=== PATIENT | male | born 1970 | race Caucasian/White ===

== ENCOUNTER 2022-03-01 15:49 | Emergency (ER) | payer OTHER, SELFPAY ==
--- NOTE | 2022-03-01 15:52 | ED.NECK ---
HPI - Neck Pain/Injury General Chief Complaint: Neck Pain/Injury Stated Complaint: NECK PAIN Time Seen by Provider: 03/01/22 15:52 Source: patient and RN notes reviewed History of Present Illness HPI Narrative: Patient is a 51-year-old male who presents the urgent care with complaints of right and posterior neck pain. Patient states that it started yesterday after he was pressure washing for many hours. Patient is right-hand dominant. States that he has a lot of arthritis in the neck and has had issues with pain in the past. Patient states that he has been taking ibuprofen and did see his sister before arrival who is a chiropractor, adjusted him and used massage without relief. Patient denies any trauma or fall. Denies of chest pain. No other acute complaints. No acute distress noted. Patient aware of the plan of care. Some parts of this dictation were generated by voice recognition software and may contain typographical and/or grammatical inaccuracies. Related Data Home Medications Medication Instructions Recorded Confirmed rosuvastatin 20 mg tablet mg 03/01/22 Allergies Allergy/AdvReac Type Severity Reaction Status Date / Time No Known Allergies Allergy Unverified 07/10/18 16:13 Review of Systems Review of Systems: CONSTITUTIONAL: Denies fever, chills, or sweats. EYES: Denies visual changes, redness, or discharge. ENT: Denies rhinorrhea, congestion, sore throat, or otalgia. Reports of posterior and right neck pain CARDIOVASCULAR: Denies chest pain, palpitations, or edema. RESPIRATORY: Denies cough or dyspnea. GASTROINTESTINAL: Denies abdominal pain, nausea, vomiting, or diarrhea. GENITOURINARY: Denies dysuria or hematuria. SKIN: Denies rash or itching. MUSCULOSKELETAL: Reports of right shoulder pain NEUROLOGIC: Denies headache, numbness, or weakness. All other systems reviewed are negative, except as documented in HPI. PMFSH Comments At the time of my signature, I reviewed and agree with the nursing past medical, surgical, social, and family history. There is no relevant family history pertinent to the patient complaint. Exam Narrative: GENERAL: This is a well-nourished, well-developed patient, in no apparent distress. HEAD: normocephalic, atraumatic. EYES: PERRL. Sclera clear/white. Vision is grossly intact. EARS: External ears normal NOSE: External nose normal with no obvious nasal discharge, nares without redness, no rhinorrhea. THROAT: Mucous membranes moist NECK: Difficulty with flexion, head tilt due to exacerbated pain. Moderate to severe diffuse right cervical tenderness without crepitus or step-off. CARDIOVASCULAR: Regular rate and rhythm RESPIRATORY: Clear to auscultation. Breath sounds equal bilaterally. No wheezes, rales, or rhonchi. SKIN: warm, intact with no suspicious lesions or rash, good texture and turgor. NEURO: awake, alert, and oriented to person, place and time. There were no obvious focal neurologic abnormalities. EXTREMITIES: Range of motion of right upper extremity within normal limits due to exacerbated shoulder discomfort from cervical radiculopathy. Moderate right posterior scapular/shoulder tenderness. Positive strong right radial pulse with capillary refill less than 2 seconds. Course Course Level of Care: Express Care Visit Vital Signs Vital signs: Vital Signs Temperature 97 F L 03/01/22 15:57 Pulse Rate 66 03/01/22 15:57 Respiratory Rate 16 03/01/22 15:57 Blood Pressure 141/96 H 03/01/22 15:57 Pulse Oximetry 100 03/01/22 15:57 Temperature 97 F L 03/01/22 15:57 Pulse Rate 66 03/01/22 15:57 Respiratory Rate 16 03/01/22 15:57 Blood Pressure 141/96 H 03/01/22 15:57 Pulse Oximetry 100 03/01/22 15:57 Reviewed-patient is informed that they may have pre-hypertension or hypertension based on a blood pressure reading in the department. I recommend the patient call the primary care provider listed on their discharge instructions or a physicia
[2022-03-01 15:57] VITALS: BP 141/96; PULSE 66; RESP 16; TEMP 36.1; O2SAT 100
[2022-03-01] MEDS: predniSONE 20 MG TABLET 60 MG PO (16:08)
== END 2022-03-01 16:16 | disposition home or self-care (01) ==
PROVIDERS: Emergency Provider Nurse Practitioner Family; PCP Internal Medicine
DX: M54.12 Radiculopathy, cervical region (principal)
CPT/HCPCS: 99213; G0463; J7512